=== PATIENT | female | born 1965 | race Caucasian/White ===

== ENCOUNTER → 2016-11-04 | Outpatient (CLI) | payer OTHER ==
[2016-11-04 15:37] LABS: ALBUMIN 4.2 g/dL (3.4-5.0); ANION GAP 14.6 MEQ/L (3-15); CALCULATED IONIZED CALCIUM 3.9 mg/dL (3.8-4.6); TOTAL PROTEIN 7.9 g/dL (6.4-8.5)
== END ==
LOC: LAB 14:55
PROVIDERS: ATTEND Family Medicine
DX: E78.2 Mixed hyperlipidemia (principal); E03.9 Hypothyroidism, unspecified
CPT/HCPCS: 36415; 80053; 80061; 84443